=== PATIENT | female | born 2000 | race Caucasian/White ===

== ENCOUNTER → 2025-04-03 10:50 | Outpatient (REF) | payer OTHER, SELFPAY | LOC: OHS 10:50 | PROVIDERS: ATTENDING PHYSICIAN Nurse Practitioner Family | DX: Z23 Encounter for immunization (principal) | CPT/HCPCS: 36415; 86480; 86706 ==

== ENCOUNTER → 2025-05-18 13:31 | Outpatient (REF) | payer OTHER, SELFPAY | LOC: HWLAB 13:31 | PROVIDERS: ATTENDING PHYSICIAN Nurse Practitioner Family | DX: Z23 Encounter for immunization (principal) | CPT/HCPCS: 36415; 86706 ==

== ENCOUNTER → 2025-08-03 09:44 | Outpatient (REF) | payer OTHER, SELFPAY | LOC: HWRAD 09:44 | PROVIDERS: ATTENDING PHYSICIAN Nurse Practitioner | DX: R10.9 Unspecified abdominal pain (principal) | CPT/HCPCS: 76700 ==